=== PATIENT | male | born 1930 | race African-American/Black ===

== ENCOUNTER 2019-02-25 17:24 | Inpatient (IN) ==
[2019-02-25] MEDS ORDERED: Acetaminophen IV 1,000 MG/100 ML INFUS..BTL IVPB ONE (20:48)
[2019-02-25] MEDS ORDERED: Naloxone 0.4 MG/ML INJ IVP PRN (21:16)
[2019-02-25 22:47] LABS: Hematocrit 21.2 % (37.5-50.1); Hemoglobin 6.7 g/dL (12.9-16.9); Mean Corpuscular HGB Conc 31.6 g/dL (31.6-35.5); Mean Corpuscular Volume 95.1 fL (83.0-100.0); Mean Platelet Volume 9.7 fL (9.4-12.4); Platelet Count 165 K/mcL (140-400); Red Blood Count 2.23 M/mcL (4.19-5.50); Red Cell Distribution Width 20.3 % (11.5-14.5); White Blood Count 9.6 K/mcL (4.3-11.1)
[2019-02-25 22:54] LABS: INR 1.2; Prothrombin Time 13.4 Seconds (9.4-12.1)
[2019-02-25 23:24] LABS: Albumin 2.7 g/dL (3.5-5.7); Albumin/Globulin Ratio 0.6 (1.1-2.2); Bilirubin,Total 0.4 mg/dL (0.3-1.0); Calcium 9.1 mg/dL (8.6-10.3); Globulin 4.3 g/dL (2.4-3.5); Potassium 4.1 mEq/L (3.5-5.1)
[2019-02-25 23:58] LABS: Magnesium 2.6 mg/dL (1.6-2.6); Phosphorous 5.9 mg/dL (2.7-4.5)
[2019-02-26] MEDS: Pantoprazole 40 MG VIAL IVP SCH ×2 (04:54→18:43)
[2019-02-26] MEDS ORDERED: 0.9 % Sodium Chloride 1,000 ML ONE (09:29)
[2019-02-26] MEDS ORDERED: *HR* Heparin 10,000 UNIT/10 ML VIAL IV PRN (09:44)
[2019-02-26] MEDS ORDERED: 0.9 % Sodium Chloride 250 ML IVC PRN (09:44)
[2019-02-26] MEDS ORDERED: 0.9 % Sodium Chloride 1,000 ML PRIME SCH (09:45)
[2019-02-26 10:10] LABS: Hematocrit 20.3 % (37.5-50.1); Hemoglobin 6.3 g/dL (12.9-16.9); Mean Corpuscular Hemoglobin 29.4 pg (28.0-33.3); Mean Corpuscular Volume 94.9 fL (83.0-100.0); Mean Platelet Volume 9.6 fL (9.4-12.4); Platelet Count 164 K/mcL (140-400); Red Blood Count 2.14 M/mcL (4.19-5.50); White Blood Count 9.3 K/mcL (4.3-11.1)
[2019-02-26] MEDS ORDERED: 0.9 % Sodium Chloride 250 ML ONE ×3 (10:11→20:36)
[2019-02-26 10:35] LABS: Alanine Aminotransferase 21 Units/L (7-52); Albumin 2.7 g/dL (3.5-5.7); Albumin/Globulin Ratio 0.6 (1.1-2.2); Alkaline Phosphatase 150 Units/L (34-104); Aspartate Amino Transferase 24 Units/L (13-39); Bilirubin,Total 0.4 mg/dL (0.3-1.0); Blood Urea Nitrogen > 130 mg/dL (8-23); Calcium 9.3 mg/dL (8.6-10.3); Carbon Dioxide 25 mEq/L (23-29); Chloride 99 mEq/L (98-107); Globulin 4.2 g/dL (2.4-3.5); Glucose 109 mg/dL (70-105); Phosphorous 6.6 mg/dL (2.7-4.5); Potassium 4.3 mEq/L (3.5-5.1); Sodium 134 mEq/L (136-145); Total Protein 6.9 g/dL (6.4-8.9); eGFR For African Americans 12 (> 60); eGFR For Non-African Americans 10 (> 60)
[2019-02-26] MEDS ORDERED: *HR* Propofol 200 MG/20 ML VIAL IVP ONE (13:53)
[2019-02-26] MEDS ORDERED: 0.9 % Sodium Chloride 1,000 ML IVC SCH (15:00)
[2019-02-26] MEDS ORDERED: Ringers Solution, Lactated 1,000 ML IVC SCH (15:00)
[2019-02-26 16:35] LABS: Hepatitis B Surface Antibody 382.38 mIU/mL
[2019-02-26 16:45] LABS: Hepatitis B Surface Antigen Nonreactive (Nonreactive)
[2019-02-26 19:45] LABS: Hematocrit 30.5 % (37.5-50.1); Hemoglobin 10.2 g/dL (12.9-16.9)
[2019-02-26] MEDS: SODIUM CHLORIDE 0.9% IVPB SCH (21:01)
[2019-02-26] MEDS: LEVETIRACETAM IVPB SCH (21:01)
[2019-02-27 04:17] LABS: Hematocrit 28.2 % (37.5-50.1); Hemoglobin 9.4 g/dL (12.9-16.9); Mean Corpuscular HGB Conc 33.3 g/dL (31.6-35.5); Mean Corpuscular Hemoglobin 29.6 pg (28.0-33.3); Mean Corpuscular Volume 88.7 fL (83.0-100.0); Mean Platelet Volume 9.5 fL (9.4-12.4); Platelet Count 144 K/mcL (140-400); Red Blood Count 3.18 M/mcL (4.19-5.50); Red Cell Distribution Width 18.7 % (11.5-14.5)
[2019-02-27 04:45] LABS: Blood Urea Nitrogen > 130 mg/dL (8-23); Calcium 9.1 mg/dL (8.6-10.3); Carbon Dioxide 22 mEq/L (23-29); Chloride 98 mEq/L (98-107); Glucose 109 mg/dL (70-105); Potassium 4.8 mEq/L (3.5-5.1); Sodium 135 mEq/L (136-145); eGFR For African Americans 10 (> 60); eGFR For Non-African Americans 8 (> 60)
[2019-02-27] MEDS: Pantoprazole 40 MG VIAL IVP SCH ×2 (05:24→18:00)
[2019-02-27] MEDS ORDERED: *HR* Heparin 10,000 UNIT/10 ML VIAL IV PRN (07:44)
[2019-02-27] MEDS ORDERED: 0.9 % Sodium Chloride 250 ML IVC PRN (07:44)
[2019-02-27] MEDS ORDERED: 0.9 % Sodium Chloride 1,000 ML PRIME SCH (07:45)
[2019-02-27] MEDS ORDERED: *HR* HYDROmorphone (PF) 1 MG/ML SYRINGE IM ONE (14:51)
[2019-02-27] MEDS ORDERED: *HR* HYDROmorphone (PF) 1 MG/ML SYRINGE IVP ONE (15:15)
[2019-02-27] MEDS ORDERED: SODIUM CHLORIDE/NAHCO3/KCL/PEG 4,000 ML SOLN.RECON PO ONE (17:00)
[2019-02-27] MEDS: LEVETIRACETAM IVPB SCH (19:55)
[2019-02-27] MEDS: SODIUM CHLORIDE 0.9% IVPB SCH (19:55)
[2019-02-27] MEDS: Melatonin 3 MG TABLET GTUBE PRN (22:24)
[2019-02-28 03:13] LABS: Calcium 8.1 mg/dL (8.6-10.3); Potassium 3.7 mEq/L (3.5-5.1)
[2019-02-28 03:19] LABS: Hematocrit 20.9 % (37.5-50.1); Mean Corpuscular HGB Conc 33.5 g/dL (31.6-35.5); Mean Corpuscular Hemoglobin 29.8 pg (28.0-33.3); Mean Corpuscular Volume 88.9 fL (83.0-100.0); Mean Platelet Volume 9.7 fL (9.4-12.4); Platelet Count 126 K/mcL (140-400); Red Blood Count 2.35 M/mcL (4.19-5.50); Red Cell Distribution Width 19.4 % (11.5-14.5); White Blood Count 8.3 K/mcL (4.3-11.1)
[2019-02-28] MEDS: Pantoprazole 40 MG VIAL IVP SCH ×2 (05:08→18:14)
[2019-02-28] MEDS ORDERED: Lidocaine -MPF 2% 2 ML VIAL ONE (08:15)
[2019-02-28] MEDS ORDERED: Propofol 500 MG/50 ML INFUS..BTL ONE (08:16)
[2019-02-28] MEDS ORDERED: Simethicone 40 MG/0.6 ML MLS IR ONE (08:46)
[2019-02-28] MEDS: Ringers Solution, Lactated 1,000 ML IVC SCH (08:47)
[2019-02-28] MEDS ORDERED: 0.9 % Sodium Chloride 250 ML ONE (12:24)
[2019-02-28] MEDS: SODIUM CHLORIDE 0.9% IVPB SCH (20:21)
[2019-02-28] MEDS: LEVETIRACETAM IVPB SCH (20:21)
[2019-02-28] MEDS: Melatonin 3 MG TABLET GTUBE PRN (21:03)
[2019-03-01 03:56] LABS: Hematocrit 24.6 % (37.5-50.1); Hemoglobin 8.2 g/dL (12.9-16.9); Mean Corpuscular HGB Conc 33.3 g/dL (31.6-35.5); Mean Corpuscular Hemoglobin 29.7 pg (28.0-33.3); Mean Corpuscular Volume 89.1 fL (83.0-100.0); Mean Platelet Volume 9.3 fL (9.4-12.4); Platelet Count 128 K/mcL (140-400); Red Blood Count 2.76 M/mcL (4.19-5.50); Red Cell Distribution Width 19.9 % (11.5-14.5); White Blood Count 11.4 K/mcL (4.3-11.1)
[2019-03-01 04:20] LABS: Calcium 8.6 mg/dL (8.6-10.3); Potassium 4.1 mEq/L (3.5-5.1)
[2019-03-01] MEDS: Pantoprazole 40 MG VIAL IVP SCH ×2 (05:39→18:36)
[2019-03-01] MEDS: Ringers Solution, Lactated 1,000 ML IVC SCH (10:16)
[2019-03-01 17:24] LABS: Hemoglobin 7.7 g/dL (12.9-16.9); Mean Corpuscular HGB Conc 33.5 g/dL (31.6-35.5); Mean Corpuscular Hemoglobin 29.5 pg (28.0-33.3); Mean Corpuscular Volume 88.1 fL (83.0-100.0); Mean Platelet Volume 9.8 fL (9.4-12.4); Platelet Count 121 K/mcL (140-400); Red Blood Count 2.61 M/mcL (4.19-5.50); Red Cell Distribution Width 19.9 % (11.5-14.5)
[2019-03-01] MEDS: LEVETIRACETAM IVPB SCH (21:35)
[2019-03-01] MEDS: SODIUM CHLORIDE 0.9% IVPB SCH (21:35)
[2019-03-02 01:42] LABS: Hematocrit 22.4 % (37.5-50.1); Hemoglobin 7.6 g/dL (12.9-16.9); Mean Corpuscular HGB Conc 33.9 g/dL (31.6-35.5); Mean Corpuscular Hemoglobin 29.9 pg (28.0-33.3); Mean Corpuscular Volume 88.2 fL (83.0-100.0); Mean Platelet Volume 10.1 fL (9.4-12.4); Platelet Count 128 K/mcL (140-400); Red Blood Count 2.54 M/mcL (4.19-5.50); Red Cell Distribution Width 19.9 % (11.5-14.5); White Blood Count 10.9 K/mcL (4.3-11.1)
[2019-03-02] MEDS: Pantoprazole 40 MG VIAL IVP SCH ×2 (04:10→17:53)
[2019-03-02 05:50] LABS: Calcium 8.7 mg/dL (8.6-10.3)
[2019-03-02] MEDS ORDERED: 0.9 % Sodium Chloride 250 ML IVC PRN (07:09)
[2019-03-02] MEDS: Ipratropium/Albuterol Neb 3 ML IH SCH ×3 (11:00→22:22)
[2019-03-02] MEDS: SODIUM CHLORIDE 0.9% IVPB SCH (20:16)
[2019-03-02] MEDS: LEVETIRACETAM IVPB SCH (20:16)
[2019-03-02] MEDS ORDERED: 0.9 % Sodium Chloride 250 ML ONE (23:57)
[2019-03-03] MEDS: Ipratropium/Albuterol Neb 3 ML IH SCH ×4 (03:52→21:47)
[2019-03-03] MEDS: Pantoprazole 40 MG VIAL IVP SCH ×2 (05:55→17:53)
[2019-03-03 06:13] LABS: Hematocrit 26.1 % (37.5-50.1); Mean Corpuscular HGB Conc 34.1 g/dL (31.6-35.5); Mean Corpuscular Hemoglobin 30.3 pg (28.0-33.3); Mean Corpuscular Volume 88.8 fL (83.0-100.0); Mean Platelet Volume 9.4 fL (9.4-12.4); Platelet Count 105 K/mcL (140-400); Red Blood Count 2.94 M/mcL (4.19-5.50); Red Cell Distribution Width 18.2 % (11.5-14.5); White Blood Count 7.5 K/mcL (4.3-11.1)
[2019-03-03 06:14] LABS: Hemoglobin 8.9 g/dL (12.9-16.9)
[2019-03-03 06:34] LABS: Calcium 8.3 mg/dL (8.6-10.3); Potassium 3.8 mEq/L (3.5-5.1)
[2019-03-03] MEDS ORDERED: levETIRAcetam 500 MG/5 ML UDC GTUBE SCH (21:00)
[2019-03-04] MEDS ORDERED: Ipratropium/Albuterol Neb 3 ML IH PRN (01:08)
[2019-03-04] MEDS: Ipratropium/Albuterol Neb 3 ML IH SCH ×4 (04:07→21:57)
[2019-03-04 04:33] LABS: Hemoglobin 9.7 g/dL (12.9-16.9); Mean Corpuscular HGB Conc 33.4 g/dL (31.6-35.5); Mean Corpuscular Hemoglobin 29.7 pg (28.0-33.3); Mean Corpuscular Volume 88.7 fL (83.0-100.0); Mean Platelet Volume 10.2 fL (9.4-12.4); Platelet Count 150 K/mcL (140-400); Red Blood Count 3.27 M/mcL (4.19-5.50); White Blood Count 10.5 K/mcL (4.3-11.1)
[2019-03-04 04:50] LABS: Calcium 8.8 mg/dL (8.6-10.3); Potassium 4.2 mEq/L (3.5-5.1)
[2019-03-04] MEDS: Pantoprazole 40 MG VIAL IVP SCH ×2 (06:08→21:24)
[2019-03-04] MEDS ORDERED: Lidocaine -MPF 2% 2 ML VIAL ONE (12:01)
[2019-03-04] MEDS ORDERED: *HR* Propofol 200 MG/20 ML VIAL IVP ONE (12:38)
[2019-03-04] MEDS ORDERED: Furosemide 20 MG/2 ML VIAL IVP ONE (15:30)
[2019-03-04] MEDS: Furosemide Oral Soln 40 MG/4 ML UDC GTUBE SCH (16:07)
[2019-03-05] MEDS: Ipratropium/Albuterol Neb 3 ML IH SCH ×4 (04:12→22:22)
[2019-03-05 05:15] LABS: Hematocrit 28.6 % (37.5-50.1); Hemoglobin 9.6 g/dL (12.9-16.9); Mean Corpuscular HGB Conc 33.6 g/dL (31.6-35.5); Mean Corpuscular Volume 89.4 fL (83.0-100.0); Mean Platelet Volume 10.2 fL (9.4-12.4); Platelet Count 157 K/mcL (140-400); Red Cell Distribution Width 17.7 % (11.5-14.5); White Blood Count 7.6 K/mcL (4.3-11.1)
[2019-03-05 05:31] LABS: Calcium 9.1 mg/dL (8.6-10.3); Potassium 4.9 mEq/L (3.5-5.1)
[2019-03-05] MEDS: Pantoprazole 40 MG VIAL IVP SCH ×2 (06:13→18:32)
[2019-03-05] MEDS: Furosemide Oral Soln 40 MG/4 ML UDC GTUBE SCH (09:09)
[2019-03-05] MEDS: Furosemide 20 MG/2 ML VIAL IVP SCH (11:50)
[2019-03-05] MEDS ORDERED: Acetaminophen IV 500 MG/50 ML INFUS..BTL IVPB ONE (12:32)
[2019-03-05] MEDS ORDERED: *HR* Metoprolol 5 MG/5 ML VIAL IVP ONE ×2 (20:14→20:24)
[2019-03-05] MEDS ORDERED: LEVETIRACETAM IVPB SCH (21:00)
[2019-03-05] MEDS ORDERED: SODIUM CHLORIDE 0.9% IVPB SCH (21:00)
[2019-03-06 03:45] LABS: Calcium 8.7 mg/dL (8.6-10.3); Potassium 5.2 mEq/L (3.5-5.1)
[2019-03-06 03:47] LABS: Hematocrit 28.2 % (37.5-50.1); Mean Corpuscular HGB Conc 31.9 g/dL (31.6-35.5); Mean Corpuscular Hemoglobin 30.2 pg (28.0-33.3); Mean Corpuscular Volume 94.6 fL (83.0-100.0); Mean Platelet Volume 9.8 fL (9.4-12.4); Platelet Count 159 K/mcL (140-400); Red Blood Count 2.98 M/mcL (4.19-5.50); Red Cell Distribution Width 17.7 % (11.5-14.5); White Blood Count 6.8 K/mcL (4.3-11.1)
[2019-03-06] MEDS: Ipratropium/Albuterol Neb 3 ML IH SCH ×4 (03:53→22:38)
[2019-03-06] MEDS: Pantoprazole 40 MG VIAL IVP SCH ×2 (06:20→18:51)
[2019-03-06] MEDS ORDERED: 0.9 % Sodium Chloride 250 ML IVC PRN (06:55)
[2019-03-06] MEDS: Furosemide 20 MG/2 ML VIAL IVP SCH (08:04)
[2019-03-06] MEDS ORDERED: Metoclopramide 10 MG/2 ML VIAL IVP ONE (15:43)
[2019-03-06] MEDS ORDERED: Hydrocortisone Lotion 59 ML BOTTLE TP PRN (16:55)
[2019-03-06] MEDS ORDERED: Simethicone 80 MG TAB.CHEW PO PRN (16:55)
[2019-03-06] MEDS ORDERED: *HR* Metoprolol 5 MG/5 ML VIAL IVP ONE (20:06)
[2019-03-06] MEDS: levETIRAcetam 500 MG/5 ML UDC GTUBE SCH (22:09)
[2019-03-07] MEDS: Ipratropium/Albuterol Neb 3 ML IH SCH ×4 (03:48→22:15)
[2019-03-07 04:50] LABS: Hematocrit 29.1 % (37.5-50.1); Hemoglobin 9.3 g/dL (12.9-16.9); Mean Corpuscular Hemoglobin 29.6 pg (28.0-33.3); Mean Corpuscular Volume 92.7 fL (83.0-100.0); Mean Platelet Volume 9.7 fL (9.4-12.4); Platelet Count 176 K/mcL (140-400); Red Blood Count 3.14 M/mcL (4.19-5.50); Red Cell Distribution Width 17.9 % (11.5-14.5); White Blood Count 6.5 K/mcL (4.3-11.1)
[2019-03-07 05:14] LABS: Calcium 8.4 mg/dL (8.6-10.3); Potassium 3.9 mEq/L (3.5-5.1)
[2019-03-07] MEDS: Pantoprazole 40 MG VIAL IVP SCH ×2 (05:49→18:00)
[2019-03-07] MEDS ORDERED: Ipratropium/Albuterol Neb 3 ML ONE (07:30)
[2019-03-07] MEDS: Lactobacillus 1 EACH CAP.SPRINK GTUBE SCH ×2 (09:00→20:25)
[2019-03-07] MEDS: Furosemide Oral Soln 40 MG/4 ML UDC GTUBE SCH ×2 (09:00→20:25)
[2019-03-07] MEDS: levETIRAcetam 500 MG/5 ML UDC GTUBE SCH (20:17)
[2019-03-08] MEDS: Ipratropium/Albuterol Neb 3 ML IH SCH ×4 (03:52→21:47)
[2019-03-08] MEDS: Pantoprazole 40 MG VIAL IVP SCH ×2 (05:19→17:09)
[2019-03-08] MEDS: Furosemide Oral Soln 40 MG/4 ML UDC GTUBE SCH (08:38)
[2019-03-08] MEDS: Lactobacillus 1 EACH CAP.SPRINK GTUBE SCH (08:38)
[2019-03-08 09:19] LABS: Hematocrit 28.2 % (37.5-50.1); Hemoglobin 9.1 g/dL (12.9-16.9); Mean Corpuscular HGB Conc 32.3 g/dL (31.6-35.5); Mean Corpuscular Hemoglobin 30.4 pg (28.0-33.3); Mean Corpuscular Volume 94.3 fL (83.0-100.0); Mean Platelet Volume 9.6 fL (9.4-12.4); Platelet Count 184 K/mcL (140-400); Red Blood Count 2.99 M/mcL (4.19-5.50); Red Cell Distribution Width 17.7 % (11.5-14.5); White Blood Count 8.3 K/mcL (4.3-11.1)
[2019-03-08 10:21] LABS: Calcium 8.4 mg/dL (8.6-10.3); Potassium 3.7 mEq/L (3.5-5.1)
[2019-03-08] MEDS ORDERED: Hydrocortisone Rectal 2.5% CRM 28 GM TUBE RC PRN (16:56)
[2019-03-08] MEDS: levETIRAcetam 500 MG/5 ML UDC GTUBE SCH (20:59)
[2019-03-09] MEDS: Ipratropium/Albuterol Neb 3 ML IH SCH ×4 (03:57→22:18)
[2019-03-09 04:04] LABS: Hematocrit 30.9 % (37.5-50.1); Hemoglobin 9.6 g/dL (12.9-16.9); Mean Corpuscular HGB Conc 31.1 g/dL (31.6-35.5); Mean Corpuscular Hemoglobin 29.9 pg (28.0-33.3); Mean Corpuscular Volume 96.3 fL (83.0-100.0); Mean Platelet Volume 9.7 fL (9.4-12.4); Platelet Count 196 K/mcL (140-400); Red Blood Count 3.21 M/mcL (4.19-5.50); Red Cell Distribution Width 17.4 % (11.5-14.5); White Blood Count 8.8 K/mcL (4.3-11.1)
[2019-03-09 04:19] LABS: Calcium 8.6 mg/dL (8.6-10.3); Potassium 3.8 mEq/L (3.5-5.1)
[2019-03-09] MEDS: Pantoprazole 40 MG VIAL IVP SCH (05:37)
[2019-03-09] MEDS: Lactobacillus 1 EACH CAP.SPRINK GTUBE SCH (08:49)
[2019-03-09] MEDS: Furosemide Oral Soln 40 MG/4 ML UDC GTUBE SCH (08:50)
[2019-03-09] MEDS ORDERED: 0.9 % Sodium Chloride 250 ML IVC PRN (09:36)
[2019-03-09] MEDS ORDERED: *HR* Heparin 10,000 UNIT/10 ML VIAL IV PRN (09:36)
[2019-03-09] MEDS ORDERED: 0.9 % Sodium Chloride 1,000 ML ONE (12:43)
[2019-03-09] MEDS: levETIRAcetam 500 MG/5 ML UDC GTUBE SCH (20:13)
[2019-03-10] MEDS: Ipratropium/Albuterol Neb 3 ML IH SCH ×2 (03:58→10:56)
[2019-03-10 04:08] LABS: Hematocrit 32.7 % (37.5-50.1); Hemoglobin 10.2 g/dL (12.9-16.9); Mean Corpuscular HGB Conc 31.2 g/dL (31.6-35.5); Mean Corpuscular Volume 96.2 fL (83.0-100.0); Mean Platelet Volume 9.7 fL (9.4-12.4); Platelet Count 246 K/mcL (140-400); Red Cell Distribution Width 17.4 % (11.5-14.5); White Blood Count 8.9 K/mcL (4.3-11.1)
[2019-03-10 04:20] LABS: Calcium 8.5 mg/dL (8.6-10.3); Potassium 3.8 mEq/L (3.5-5.1)
[2019-03-10 07:29] VITALS: BP 143/78
[2019-03-10] MEDS: Furosemide Oral Soln 40 MG/4 ML UDC GTUBE SCH (08:22)
[2019-03-10] MEDS: Lactobacillus 1 EACH CAP.SPRINK GTUBE SCH (08:22)
== END 2019-03-10 11:56 | DRG 377 ==
LOC: 2NNU → MERGE 21:16 → SUATTDRO 21:16
PROVIDERS: ADMIT Internal Medicine; ATTEND Family Medicine